=== PATIENT | male | born 1940 | race Caucasian/White ===

== ENCOUNTER 2017-09-09 13:04 | Emergency (ER) | payer MEDICARE ==
[2017-09-09] MEDS ORDERED: METHYLPREDNISOLONE SOD SUCC 40MG/ML 1ML ONE (13:42)
[2017-09-09] MEDS ORDERED: ACETAMINOPHEN 325 MG TAB ONE (13:43)
[2017-09-09] MEDS ORDERED: PROCHLORPERAZINE EDISYLATE 10 MG/2 ML VIAL ONE (13:43)
[2017-09-09] MEDS ORDERED: DIPHENHYDRAMINE HCL 25 MG CAPSULE ONE (13:43)
[2017-09-09 14:38] LABS: BASOPHILS % (AUTO) 0.5 % (0.0-5.0); EOSINOPHILS % (AUTO) 0.5 % (0.0-8.0); HEMATOCRIT 39.4 % (42-54); LYMPHOCYTES % (AUTO) 16.4 % (21.0-51.0); MEAN CORPUSCULAR HEMOGLOBIN 29.3 pg (27.0-33.0); MEAN CORPUSCULAR HGB CONC 33.8 g/dL (32.0-36.0); MEAN CORPUSCULAR VOLUME 86.8 fL (79-99); MONOCYTES % (AUTO) 19.4 % (3.0-13.0); NEUTROPHILS % (AUTO) 63.2 % (40.0-77.0); NUCLEATED RED BLOOD CELLS 0.1 % (0.0-0.19); PLATELET COUNT (AUTO) 188 K/uL (130-400); RED BLOOD CELL COUNT(AUTO) 4.54 MIL/uL (4.50-6.20); RED CELL DISTRIBUTION WIDTH 14.3 % (11.0-15.5); WHITE BLOOD COUNT (AUTO) 4.1 K/uL (4.8-10.8)
[2017-09-09 14:44] LABS: CREATININE 1.1 mg/dL (0.5-1.5); POTASSIUM 3.9 mmol/L (3.5-5.1)
[2017-09-09 14:47] LABS: INR 0.95 (0.85-1.15); PARTIAL THROMBOPLASTIN TIME 24.7 SEC (26.3-35.5)
== END 2017-09-09 16:22 | disposition home or self-care (01) ==
LOC: EDH 13:04
DX: R51 Headache (principal); R11.2 Nausea with vomiting, unspecified; D72.819 Decreased white blood cell count, unspecified; I10 Essential (primary) hypertension; E78.5 Hyperlipidemia, unspecified; E07.9 Disorder of thyroid, unspecified; R79.1 Abnormal coagulation profile
CPT/HCPCS: 36415; 70450; 80048; 85025; 85610; 85730; 86000; 86141; 86618; 87804 ×2; 96361; 96374; 96375; 99285; J0780; J2920; Q0163

== ENCOUNTER 2018-07-19 20:40 | Emergency (ER) | payer MEDICARE ==
[2018-07-19 21:07] LABS: BASOPHILS % (AUTO) 0.8 % (0.0-5.0); EOSINOPHILS % (AUTO) 0.8 % (0.0-8.0); HEMATOCRIT 46.2 % (42-54); LYMPHOCYTES % (AUTO) 31.7 % (21.0-51.0); MEAN CORPUSCULAR HEMOGLOBIN 28.8 pg (27.0-33.0); MEAN CORPUSCULAR HGB CONC 33.7 g/dL (32.0-36.0); MEAN CORPUSCULAR VOLUME 85.3 fL (79-99); MONOCYTES % (AUTO) 9.9 % (3.0-13.0); NEUTROPHILS % (AUTO) 56.8 % (40.0-77.0); NUCLEATED RED BLOOD CELLS 0.1 % (0.0-0.19); PLATELET COUNT (AUTO) 222 K/uL (130-400); RED BLOOD CELL COUNT(AUTO) 5.41 MIL/uL (4.50-6.20); RED CELL DISTRIBUTION WIDTH 13.9 % (11.0-15.5); WHITE BLOOD COUNT (AUTO) 6.7 K/uL (4.8-10.8)
[2018-07-19 21:12] LABS: CREATININE 1.4 mg/dL (0.5-1.5); POTASSIUM 3.3 mmol/L (3.5-5.1)
[2018-07-19 21:19] LABS: ALBUMIN 4.3 g/dL (3.5-5.0); BILIRUBIN,TOTAL 0.5 mg/dL (0.2-1.0); TOTAL PROTEIN, SERUM 8.5 g/dL (6.0-8.3)
== END 2018-07-19 22:28 | disposition home or self-care (01) ==
LOC: EDH 20:40
DX: K22.2 Esophageal obstruction (principal); E07.9 Disorder of thyroid, unspecified; Z90.49 Acquired absence of other specified parts of digestive tract
CPT/HCPCS: 36415; 80053; 85025; 93005